=== PATIENT | male | born 1965 | race Hispanic/Latino ===

== ENCOUNTER 2017-09-17 22:58 | Emergency (ER) | payer BC, OTHER ==
[2017-09-17 22:58] VITALS: BMI 29.5
--- NOTE | 2017-09-17 23:55 | ED PDOC ---
HPI: Psych/Substance Abuse Time Seen by Provider: 09/17/17 23:15 Chief Complaint (Nursing): Alcohol Ingestion Chief Complaint (Provider): etoh History Per: EMS History/Exam Limitations: no limitations Additional Complaint(s): 52 y/o male brought in by EMS for evaluation of alcohol intoxication. Patient with facial and hand abrasions. HPI limited due to patient's current state. Patient agitated. Past Medical History Reviewed: Historical Data, Nursing Documentation, Vital Signs Vital Signs: Last Vital Signs Temp 98.0 F 09/17/17 23:00 Pulse 90 09/17/17 23:00 Resp 16 09/17/17 23:00 BP 168/98 H 09/17/17 23:00 Pulse Ox 98 09/17/17 23:00 - Medical History PMH: HTN, Hypercholesterolemia Denies: HIV - Family History Family History: States: Unknown Family Hx - Home Medications Home Medications: Ambulatory Orders Medication Instructions Recorded Alprazolam [Xanax] 0.5 mg PO TID PRN 05/16/14 Ascorbic Acid [Vitamin C] 1,000 mg PO DAILY 05/16/14 Azelastine/Fluticasone [Dymista 1 spray KARIS BID 05/16/14 Nasal [place]] Cholecalciferol (Vitamin D3) 5,000 unit PO DAILY 05/16/14 [Vitamin D3] Colesevelam HCl [Welchol] 625 mg PO BID 05/16/14 Ezetimibe [Zetia] 10 mg PO DAILY 05/16/14 Irbesartan 150 mg PO DAILY 05/16/14 Metoprolol Succinate [Toprol XL] 100 mg PO BID 05/16/14 Multivitamin4 [One-A-Day] 1 tab PO DAILY 05/16/14 Igfow-6-Hgfr Ethyl Esters [Lovaza] 2 gm PO BID 05/16/14 Omeprazole/Sodium Bicarbonat 1 cap PO DAILY 05/16/14 [Zegerid 40 mg-1100 mg] Oxycodone Hydrochloride [Oxycodone] 30 mg PO TID PRN 05/16/14 Tadalafil [Cialis] 5 mg PO DAILY PRN 05/16/14 Ibuprofen 600 mg PO Q6H PRN #15 tab 07/29/14 traMADol [Ultram] 50 mg PO Q6 PRN #10 tab 07/29/14 Levetiracetam [Keppra Xr] 500 mg PO BID #60 ter 09/14/14 - Allergies Allergies/Adverse Reactions: Allergies Allergy/AdvReac Type Severity Reaction Status Date / Time No Known Allergies Allergy Verified 09/17/17 23:00 Review of Systems ROS Statement: Except As Marked, All Systems Reviewed And Found Negative Skin: Positive for: Other (facial/hand abrasions) Physical Exam - Reviewed Nursing Documentation Reviewed: Yes Vital Signs Reviewed: Yes - Physical Exam Appears: Positive for: Well, Non-toxic, Uncomfortable (agitated) Skin: Positive for: Normal Color, Rash (Left facial abrasion/contusion) Eye Exam: Positive for: Normal appearance, EOMI, PERRL ENT: Positive for: Other (Dried blood noted bilateral nares. No septal hematoma bilaterally.) Cardiovascular/Chest: Positive for: Regular Rate, Rhythm Respiratory: Positive for: Normal Breath Sounds Gastrointestinal/Abdominal: Positive for: Normal Exam Back: Positive for: Normal Inspection Extremity: Positive for: Normal ROM, Other (abrasion right 5th MCP; FROM, no tenderness. abrasion left 3rd MCP, FROM, no tenderness. ) Neurologic/Psych: Positive for: Alert, Other (slurred speech, unsteady gait) - Laboratory Results Result Diagrams: 09/18/17 01:46 09/18/17 01:46 - ECG O2 Sat by Pulse Oximetry: 98 - Progress ED Course And Treament: Patient verbally aggressive towards staff, cursing. Patient attempting to walk out of exam room with unsteady gait. Patient escorted back to room by security, advised patient he will need to be checked before being discharged. Patient refusing to be examined, again attempting to get up. Patient intoxicated, unwilling to comply with alternative measures offered. Patient restrained and medicated for agitation/safety. CT head, CT facial bones ordered After being taken off restraints, patient attempting to elope from ED with unsteady gait. Patient escorted back to bed by security and restraints re-applied EXAM: CT Head Without Intravenous Contrast CLINICAL HISTORY: 52 years old, male; Injury or trauma; Fall; Initial encounter; Blunt trauma ( contusions or hematomas); Consciousness not specified; Additional info: ETOH, fall TECHNIQUE: Axial computed tomography images of the head/brain without intravenous contrast. All CT scans at this facility use one or more dose reduction techniques, viz.: automated exposure control; ma/kV adjustment per patient size (including targeted exams where dose is matched to indication; i.e. head); or iterative reconstruction technique. 330 images are submitted.Sagittal , axial and coronal MPR reformatted images are submitted. COMPARISON: CT - HEAD W/O CONTRAST 2014-09-12 19:04 FINDINGS: Brain: Cerebral and cerebellar volume loss. Patchy hypodensity is seen in the periventricular and subcortical white matter. No hemorrhage. Ventricles: Unremarkable. No ventriculomegaly. Bones/joints: There is incomplete development of the neural arch of C1, a normal variant. No acute fracture. Soft tissues: Unremarkable. Sinuses: Unremarkable. No acute sinusitis. Mastoid air cells: Unremarkable. No mastoid effusion. Orbits: The globe and lens are intact. IMPRESSION: No evidence of an acute intracranial hemorrhage, midline shift or mass effect is identified. EXAM: CT Maxillofacial and mandible Without Intravenous Contrast CLINICAL HISTORY: 52 years old, male; Injury or trauma; Fall; Initial encounter; Blunt trauma ( contusions or hematomas); Cheek bone; Not specified; Additional info: ETOH, fall TECHNIQUE: Axial computed tomography images of the face and mandible without intravenous contrast. All CT scans at this facility use one or more dose reduction techniques, viz.: automated exposure control; ma/kV adjustment per patient size (including targeted exams where dose is matched to indication; i.e. head); or iterative reconstruction technique. 650 images are submitted.Sagittal , axial and coronal MPR reformatted images are submitted in soft tissue and bone windows. CT maxillofacial with mandible COMPARISON: No relevant prior studies available. FINDINGS: Bones/joints: There is incomplete development of the neural arch of C1, a normal variant. There is remote fracture deformity of left zygomatic arch. There is nonspecific nasal deformity. This is seen on the sagittal reformatted images. Soft tissues: Unremarkable. Lymph nodes: Submandibular lymph nodes. Orbits: The globe and lens are intact. Submandibular/parotid glands: Fatty infiltration of submandibular and parotid salivary glands. Sinuses: Unremarkable. No air-fluid levels. Dental: Partially horizontal impaction of the right mandibular third molar. Multifocal dental carious lesions and respirations. Nonemergent dental evaluation may be helpful. IMPRESSION: No acute findings. 2:40 Patient's [id number] at bedside to take patient home. Patient resting comfortably. Patient educated on findings, discharged with instructions to follow up PMD. Return precautions given. Disposition - Clinical Impression Clinical Impression: Alcohol intoxication, Head injury, Facial injury, Hand abrasion - Patient ED Disposition Is Patient to be Admitted: No Counseled Patient/Family Regarding: Studies Performed, Diagnosis, Need For Followup - Disposition Referrals: Shelby Cavazos MD [Primary Care Provider] - Disposition: Routine/Home Disposition Time: 02:35 Condition: IMPROVED Instructions: Skin Abrasions, Minor Head Injury, Skin Abrasions (DC), Contusion (DC)
[2017-09-18 01:52] LABS: BASO # 0.1 K/uL (0.0-0.2); EOS # 0.1 K/uL (0.0-0.7); EOS % 1.8 % (0.0-4.0); HEMOGLOBIN 14.8 g/dL (12.0-18.0); LYMPH # 2.3 K/uL (1.0-4.3); LYMPH % 33.5 % (20.0-40.0); MEAN CELL VOLUME 101.1 fl (80.0-94.0); MEAN CORPUSCULAR HEMOGLOBIN 34.8 pg (27.0-31.0); MEAN CORPUSCULAR HGB CONC 34.4 g/dL (33.0-37.0); MEAN PLATELET VOLUME 8.5 fl (7.2-11.7); MONO # 0.7 K/uL (0.0-0.8); MONO % 9.9 % (0.0-10.0); NEUT # 3.6 K/uL (1.8-7.0); NEUT % 53.8 % (50.0-75.0); RBC 4.24 Mil/uL (4.40-5.90); RED CELL DISTRIBUTION WIDTH 13.6 % (11.5-14.5); WHITE BLOOD COUNT 6.7 K/uL (4.8-10.8)
[2017-09-18 02:06] LABS: ALBUMIN 4.4 g/dL (3.5-5.0); ALT/SGPT 249 U/L (21-72); AST/SGOT 221 U/L (17-59); BLOOD UREA NITROGEN 6 mg/dl (9-20); CALCIUM 9.6 mg/dL (8.4-10.2); GFR AFRICAN-AMERICAN > 60; GFR NON-AFRICAN AMERICAN > 60
--- NOTE | 2017-09-18 02:17 | CT ---
EXAM: CT Head Without Intravenous Contrast CLINICAL HISTORY: 52 years old, male; Injury or trauma; Fall; Initial encounter; Blunt trauma (contusions or hematomas); Consciousness not specified; Additional info: ETOH, fall TECHNIQUE: Axial computed tomography images of the head/brain without intravenous contrast. All CT scans at this facility use one or more dose reduction techniques, viz.: automated exposure control; ma/kV adjustment per patient size (including targeted exams where dose is matched to indication; i.e. head); or iterative reconstruction technique. 330 images are submitted.Sagittal , axial and coronal MPR reformatted images are submitted. COMPARISON: CT - HEAD W/O CONTRAST 2014-09-12 19:04 FINDINGS: Brain: Cerebral and cerebellar volume loss. Patchy hypodensity is seen in the periventricular and subcortical white matter. No hemorrhage. Ventricles: Unremarkable. No ventriculomegaly. Bones/joints: There is incomplete development of the neural arch of C1, a normal variant. No acute fracture. Soft tissues: Unremarkable. Sinuses: Unremarkable. No acute sinusitis. Mastoid air cells: Unremarkable. No mastoid effusion. Orbits: The globe and lens are intact. IMPRESSION: No evidence of an acute intracranial hemorrhage, midline shift or mass effect is identified.
--- NOTE | 2017-09-18 02:25 | CT ---
EXAM: CT Maxillofacial and mandible Without Intravenous Contrast CLINICAL HISTORY: 52 years old, male; Injury or trauma; Fall; Initial encounter; Blunt trauma (contusions or hematomas); Cheek bone; Not specified; Additional info: ETOH, fall TECHNIQUE: Axial computed tomography images of the face and mandible without intravenous contrast. All CT scans at this facility use one or more dose reduction techniques, viz.: automated exposure control; ma/kV adjustment per patient size (including targeted exams where dose is matched to indication; i.e. head); or iterative reconstruction technique. 650 images are submitted.Sagittal , axial and coronal MPR reformatted images are submitted in soft tissue and bone windows. CT maxillofacial with mandible COMPARISON: No relevant prior studies available. FINDINGS: Bones/joints: There is incomplete development of the neural arch of C1, a normal variant. There is remote fracture deformity of left zygomatic arch. There is nonspecific nasal deformity. This is seen on the sagittal reformatted images. Soft tissues: Unremarkable. Lymph nodes: Submandibular lymph nodes. Orbits: The globe and lens are intact. Submandibular/parotid glands: Fatty infiltration of submandibular and parotid salivary glands. Sinuses: Unremarkable. No air-fluid levels. Dental: Partially horizontal impaction of the right mandibular third molar. Multifocal dental carious lesions and respirations. Nonemergent dental evaluation may be helpful. IMPRESSION: No acute findings.
[2017-09-18 02:45] VITALS: BP 145/68; PULSE 63; RESP 18; TEMP 97.5; O2SAT 96
== END 2017-09-18 02:49 | disposition home or self-care (01) ==
LOC: H.ER 22:58
DX: F10.129 Alcohol abuse with intoxication, unspecified (principal); S00.81XA Abrasion of other part of head, initial encounter; S60.519A Abrasion of unspecified hand, initial encounter; S09.90XA Unspecified injury of head, initial encounter; W19.XXXA Unspecified fall, initial encounter; Y92.89 Other specified places as the place of occurrence of the external cause; E78.00 Pure hypercholesterolemia, unspecified; I10 Essential (primary) hypertension
CPT/HCPCS: 70450; 70486; 80053; 80320; 82948; 85025; 96372; 99284; J1630; J2060

== ENCOUNTER 2018-06-22 01:19 | Emergency (ER) | payer OTHER ==
[2018-06-22 01:19] VITALS: BMI 29.5
[2018-06-22 01:33] VITALS: TEMP 97
--- NOTE | 2018-06-22 03:18 | ED PDOC ---
HPI: Psych/Substance Abuse Time Seen by Provider: 06/22/18 01:40 Chief Complaint (Nursing): Alcohol Ingestion Chief Complaint (Provider): Intoxication ED Caveat: Intoxicated History Per: Patient History/Exam Limitations: intoxication Onset/Duration Of Symptoms: Hrs (several) Current Symptoms Are (Timing): Still Present Suicide/Self Injury Attempted (Context): None Past Medical History Reviewed: Historical Data, Nursing Documentation, Vital Signs Vital Signs: Last Vital Signs Temp 97 F L 06/22/18 01:31 Pulse 106 H 06/22/18 01:31 Resp 16 06/22/18 01:31 BP 138/91 H 06/22/18 01:31 Pulse Ox 98 06/22/18 01:31 - Medical History PMH: HTN, Hypercholesterolemia Denies: HIV - Family History Family History: States: Unknown Family Hx - Home Medications Home Medications: Ambulatory Orders Medication Instructions Recorded Alprazolam [Xanax] 0.5 mg PO TID PRN 05/16/14 Ascorbic Acid [Vitamin C] 1,000 mg PO DAILY 05/16/14 Azelastine/Fluticasone [Dymista 1 spray KARIS BID 05/16/14 Nasal [place]] Cholecalciferol (Vitamin D3) 5,000 unit PO DAILY 05/16/14 [Vitamin D3] Colesevelam HCl [Welchol] 625 mg PO BID 05/16/14 Ezetimibe [Zetia] 10 mg PO DAILY 05/16/14 Irbesartan 150 mg PO DAILY 05/16/14 Metoprolol Succinate XL [Toprol XL] 100 mg PO BID 05/16/14 Multivitamin4 [One-A-Day] 1 tab PO DAILY 05/16/14 Lxtiv-6-Vdxr Ethyl Esters [Lovaza] 2 gm PO BID 05/16/14 Omeprazole/Sodium Bicarbonat 1 cap PO DAILY 05/16/14 [Zegerid 40 mg-1100 mg] Oxycodone Hydrochloride [Oxycodone] 30 mg PO TID PRN 05/16/14 Tadalafil [Cialis] 5 mg PO DAILY PRN 05/16/14 Ibuprofen 600 mg PO Q6H PRN #15 tab 07/29/14 traMADol [Ultram] 50 mg PO Q6 PRN #10 tab 07/29/14 Levetiracetam [Keppra Xr] 500 mg PO BID #60 ter 09/14/14 - Allergies Allergies/Adverse Reactions: Allergies Allergy/AdvReac Type Severity Reaction Status Date / Time No Known Allergies Allergy Verified 06/22/18 01:31 Review of Systems ROS Statement: Except As Marked, All Systems Reviewed And Found Negative Constitutional: Positive for: Other (intoxicated) Physical Exam - Reviewed Nursing Documentation Reviewed: Yes Vital Signs Reviewed: Yes - Physical Exam Appears: Positive for: No Acute Distress, Uncomfortable Head Exam: Positive for: ATRAUMATIC, NORMAL INSPECTION Skin: Positive for: Normal Color, Warm, Dry. Negative for: Diaphoresis, Pallor, Rash Eye Exam: Positive for: Normal appearance ENT: Positive for: Normal ENT Inspection Neck: Positive for: Normal Cardiovascular/Chest: Positive for: Chest Non Tender, Tachycardia. Negative for: Edema Respiratory: Positive for: Normal Breath Sounds. Negative for: Decreased Breath Sounds, Accessory Muscle Use, Crackles, Rales, Rhonchi, Stridor, Wheezing, Respiratory Distress Pulses-Carotid (L): 2+ Pulses-Carotid (R): 2+ Pulses-Radial (L): 2+ Pulses-Radial (R): 2+ Gastrointestinal/Abdominal: Positive for: Normal Exam - ECG O2 Sat by Pulse Oximetry: 98 Medical Decision Making Medical Decision Making: ETOH will release upon sobriety and ability to maintain steady and straight gait Pt lives in [place] Upon re-evaluation, the patient's gait was steady, straight and strong The pt is stable for discharge and does not exhibit clinical signs of intoxicaiton Disposition - Clinical Impression Clinical Impression: Alcohol abuse, Alcohol abuse with intoxication - Patient ED Disposition Is Patient to be Admitted: No Doctor Will See Patient In The: Office Counseled Patient/Family Regarding: Diagnosis - Disposition Disposition: Routine/Home Disposition Time: 06:00 Condition: STABLE Instructions: Alcohol Use - When Is Drinking a Problem?, Alcohol Abuse and Alcoholism (DC) Forms: [employer] (Danish)
[2018-06-22 07:02] VITALS: BP 135/86; PULSE 80; RESP 17; O2SAT 99
== END 2018-06-22 05:49 | disposition home or self-care (01) ==
LOC: H.ER 01:19
DX: F10.129 Alcohol abuse with intoxication, unspecified (principal); E78.00 Pure hypercholesterolemia, unspecified; I10 Essential (primary) hypertension